=== PATIENT | male | born 1995 | race African-American/Black ===

== ENCOUNTER 2018-08-07 12:41 | Observation (INO) ==
--- NOTE | 2018-08-07 13:47 | Diag Imaging Result Doc PS360 ---
CHEST-2 VIEWS - 08/07/2018 INDICATION: cough COMPARISON: 04/28/2017 FINDINGS: Lung volumes are low. There is cardiomegaly and pulmonary vascular congestion. There is some mild central infiltrates bilaterally compatible with pulmonary edema. No pneumothorax or large pleural effusion. IMPRESSION: Cardiomegaly, pulmonary vascular congestion, pulmonary edema. Electronically signed by Keon Rosario 08/07/2018 1:44 PM
[2018-08-07 15:16] LABS: BE 1.2 mmoll (-3.0-3.0); BLOOD TYPE ARTERIAL; HCO3-(ACT) 25.8 mmoll (20.0-26.0); METHB 1.2 % (0.0-1.5); O2(CT) 20.3 mL/dL (15.0-23.0); PCO2(98.6) 41 mmHg (35-45); PO2(98.6) 83 mmHg (60-100); SAMPLE BLOOD; SAO2 97.6 % (95.0-100.0); THB 15.3 g/dL (11.5-17.4); pH(98.6) 7.41 (7.35-7.45)
[2018-08-07 15:18] LABS: ALLEN TEST YES; MODALITY CANNULA
[2018-08-07 15:54] LABS: BASO# 0.03 X1000 (0.0-0.2); BASO% 0.3 % (0.0-0.8); EOS# 0.07 X1000 (0.0-0.7); EOS% 0.7 % (0.0-10.0); HEMATOCRIT 43.2 % (42.0-52.0); HEMOGLOBIN 14.9 g/dL (14.0-18.0); IMM GRAN# 0.04 X1000 (0.0-0.04); IMM GRAN% 0.4 % (0.0-0.5); LYMPH# 1.93 X1000 (1.2-3.4); LYMPH% 19.4 % (20.5-51.1); MCH 31.4 PG (27-31); MCHC 34.5 g/dL (33-37); MCV 91.1 FL (81-99); MONO# 0.87 X1000 (0.11-0.59); MONO% 8.7 % (1.7-9.3); MPV 11.3 FL (7.4-10.4); NEUT# 7.01 X1000 (1.4-6.5); NEUT% 70.5 % (42.2-75.2); PLT 238 X1000 (130-400); RBC 4.74 XMIL (4.7-6.1); RDW 13.9 % (11.5-14.5); WBC 9.95 X1000 (4.8-10.8)
--- NOTE | 2018-08-07 16:20 | PROVIDER DOCUMENTATION ---
This chart was entered by Deepthi Ochoa Scribe, acting as scribe for Inder Omalley MD. HPI-Respiratory General - General Chief Complaint: General Adult Stated Complaint: DIFFICULT BREATHING Time Seen by Provider: 08/07/18 13:40 Source: family Allergies/Adverse Reactions: Patient Allergies Allergy/AdvReac Type Severity Reaction Status Date / Time carbamazepine [From Tegretol] Allergy RASH Verified 04/28/17 19:08 lamotrigine [From Lamictal] Allergy RASH Verified 04/28/17 19:08 topiramate [From Topamax] Allergy RASH Verified 04/28/17 19:08 Home Medications: Home Medication List Medication Instructions Recorded Confirmed Last Taken Type Albuterol Sulfate 2.5 mg IH PRN PRN 04/28/17 04/28/17 Unknown History Azithromycin [Zithromax Z-Jered] 250 mg PO DIRECTED #1 pkg 04/28/17 Unknown Rx Clobazam [Onfi] 50 mg PO DAILY 04/28/17 04/28/17 Unknown History D-Methorphan/P-Epd/Bpm [Bromfed Dm 5 ml PO Q4H PRN #120 ml 04/28/17 Unknown Rx Liquid] Lacosamide [Vimpat] 200 mg PO BID 04/28/17 04/28/17 Unknown History Levalbuterol Inhaler [Xopenex Hfa] 2 puff INH Q4-6H PRN PRN 04/28/17 04/28/17 Unknown History Levetiracetam 3,500 mg PO DAILY 04/28/17 04/28/17 Unknown History Mirtazapine 3.75 mg PO PRN PRN 04/28/17 04/28/17 Unknown History Omeprazole 40 mg PO QHS 04/28/17 04/28/17 Unknown History Polyethylene Glycol 3350 [Miralax] 17 gm PO PRN PRN 04/28/17 04/28/17 Unknown History Pyridoxine HCl [Vitamin B-6] 100 mg PO BID 04/28/17 04/28/17 Unknown History Rufinamide [Banzel] 400 mg PO BID 04/28/17 04/28/17 Unknown History - History of Present Illness-Resp Nature of Presenting Problem: 22 y/o male presents to ED with SOB and dyspnea onset 1 week ago. Mother of pt reports she talked to his pulomonolgist on the phone on 07/29 about his symptoms, and he put him on prednisone and cefdinir. Mother states his O2 sats have been dropping into the 80s. Pt is sleeping and nontoxic. Quality of Pain: reports: none Severity in ED: reports: mild, moderate Onset/Duration: reports: 1 week ago Timing: reports: still present Cough Quality/Degree: reports: no cough Episode Frequency: occasional episodes Current Respiratory Medication Therapy: Initiated see nurses note Modifying Factors: improves with: nothing Associated Symptoms: reports: shortness of breath, short of breath, other (dyspnea) Similar Symptoms Previously?: No Recently seen or treated by another doctor?: No Review of Systems - Adult - REVIEW OF SYSTEMS - ADULT Constitutional: denies: chills, fever Eyes: reports: no symptoms reported Ears, Nose, Mouth & Throat: reports: no symptoms reported Cardiovascular: denies: chest pain, palpitations Respiratory: reports: shortness of breath, other (dyspnea). denies: cough Gastrointestinal: denies: diarrhea, nausea, vomiting Genitourinary: reports: no symptoms reported Musculoskeletal: reports: no symptoms reported Integumentary: reports: no symptoms reported Neurological: denies: seizure, syncope Psychiatric: reports: no symptoms reported Endocrine: reports: no symptoms reported Hematologic/Lymphatic: reports: no symptoms reported Allergic/Immunologic: reports: no symptoms reported All Other Systems: Reviewed and Negative Past History - Adult - PAST MEDICAL HISTORY-ADULT Review of Records: reports: Old Records Reviewed, Nursing Assessment Review, Medications Reviewed Major Childhood Illnesses: reports: denies history Respiratory: reports: asthma, sleep apnea Neurological: reports: Seizures/Epilepsy, other (anoxic brain injury) - PRIOR SURGERIES/PROCEDURES Surgical/Procedure History: reports: other (trach, G tube, testicle, heart, chest tube) - IMMUNIZATION STATUS Childhood Immunizations: See Nurse Assessment Flu Vaccine: See Nurse Assessment - FAMILY HISTORY Family History: reviewed, not pertinent - SOCIAL HISTORY Smoking: non-smoker Substance Use: none/never Alcohol Use Frequency: never Living Situation: family Physical Exam-General - PHYSICAL EXAM-ADULT Initial Vital Signs Reviewed: Yes - CONSTITUTIONAL General Appearance: appears well, alert, no apparent distress, other (disabled from anoxic brain injury; minimally responsive) - EYES Eyes: PERRL/EOMI, pink conjunctivae - HEAD, EARS, NOSE, MOUTH & THROAT HENMT: normocephalic/atraumatic, moist mucous membranes, normal ENT inspection, TM obscurred by cerumen (bilateral), other (clear airway) - NECK Neck: non-tender - RESPIRATORY Respiratory: chest non-tender, lungs clear, decreased breath sounds - CARDIOVASCULAR Cardiovascular: normal peripheral pulses, regular rate, rhythm - GASTROINTESTINAL (ABDOMEN) Abdominal Exam: normal bowel sounds, non tender, soft - MUSCULOSKELETAL Back Exam: normal inspection, no CVA tenderness Extremity: non-tender - SKIN Integumentary: normal color, warm/dry - NEUROLOGIC Neurologic: grossly normal, other (disabled from anoxic brain injury; minimally responsive) - PSYCHIATRIC Psych/Mental Status: normal mood/affect, other (disabled from anoxic brain injury; minimally responsive) - HEART Score HEART Score: History: Slightly Suspicious HEART Score: Age: < or = 45 Years HEART Score: Risk Factors for Atherosclerotic Disease: 1 or 2 Risk Factors Progress - PLAN OF CARE/RESULTS Progress/Plan/Lab Results: Vital Signs - 8 hr 08/07/18 12:45 08/07/18 14:41 Temperature 98.6 F 98.8 F Pulse Rate 95 H 85 Respiratory Rate 20 18 Blood Pressure 134/75 126/87 O2 Sat by Pulse Oximetry 94 L 95 Laboratory Results - last 24 hr 08/07/18 08/07/18 15:00 15:50 WBC 9.95 RBC 4.74 Hgb 14.9 Hct 43.2 MCV 91.1 MCH 31.4 H MCHC 34.5 RDW Std Deviation 13.9 Plt Count 238 MPV 11.3 H Immature Gran % (Auto) 0.4 Neut % (Auto) 70.5 Lymph % (Auto) 19.4 L [place] % (Auto) 8.7 Eos % (Auto) 0.7 Baso % (Auto) 0.3 Immature Gran # (Auto) 0.04 Neut # (Auto) 7.01 H Lymph # (Auto) 1.93 [place] # (Auto) 0.87 H Eos # (Auto) 0.07 Baso # (Auto) 0.03 Specimen Type ARTERIAL Sample Site R RADIAL pH 7.41 pCO2 41 pO2 83 HCO3 25.8 Base Excess 1.2 Oxyhemoglobin 94.0 L ABG O2 Sat (Calculated) 20.3 ABG O2 Saturation 97.6 ABG Carboxyhemoglobin 2.50 ABG Methemoglobin 1.2 Jose Test YES A-a O2 Difference 37.0 Total Hemoglobin 15.3 Lactate 1.60 Liter Flow 1.0 Blood Gas Modality CANNULA FiO2 % 24.0 Orders Category Date Time Status CHEST-2 VIEWS [RAD] Stat Exams 08/07/18 12:53 Completed ABG [RESP] Routine Lab 08/07/18 15:00 Completed CBC WITH ELECTRONIC DIFF [HEME] Stat Lab 08/07/18 15:50 Completed COMPREHENSIVE METABOLIC PANEL [CHEM] Stat Lab 08/07/18 15:50 Received bnp [PRO B-NATRIURETIC PEPTIDE] Stat Lab 08/07/18 15:50 Received Transfer/Admit Order [TRANSFER] Routine Transfer 08/07/18 16:07 Ordered Result Diagrams: 08/07/18 15:50 - XRAY 1 XRAY Study: Chest Impression: Abnormal (FINDINGS: Lung volumes are low. There is cardiomegaly and pulmonary vascular congestion. There is some mild central infiltrates bilaterally compatible with pulmonary edema. No pneumothorax or large pleural effusion. IMPRESSION: Cardiomegaly, pulmonary vascular congestion, pulmonary edema. Electronically signed by Keon Rosario 08/07/2018 1:44 PM) - CONSULTS/PCP/HOSPITALIST Notification #1 *Consult/PCP/Hospitalist*: Dr. Santoro Time Discussed: 16:03 Reason/Comments: O2 sat; chest x-ray Consult Disposition: Admit Departure - Departure Date of Disposition Decision: 08/07/18 Time of Disposition Decision: 16:18 DIAGNOSIS: Hypoventilation associated with obesity Disposition: ADMITTED INPATIENT 09 Certified Medical Emergency: Emergent Condition: Stable Additional Freetext Instructions: ED Follow Up Instructions: You have been treated by a care provider in the Emergency Department. These instructions are being provided to you so you can have an understanding of how to care for yourself upon discharge. Upon discharge from the Emergency Department, you are responsible for making arrangements for follow-up care by a physician of your choice. Take all prescribed medications as directed. Return to the Emergency Department immediately for any new or worsening symptoms. You may call the Physician Referral phone number at [phone] to obtain a list of Physicians who are taking new patients. Referrals and Follow-Ups: Melony Bruce MD [Primary Care Provider] - - Critical Care Note This patient required my direct & personal management of CC.: No Attestation - Physician/ CHIVO Attestation Patient care was provided by Advanced Practice Provider:: No The physician spent face to face time with patient:: Yes Advanced Practice Provider documentation review:: Supervising physician onsite and consulted in the evaluation and care of this patient. The physician did have a face to face encounter with the patient. This chart was documented by the indicated scribe, (Deepthi Ochoa, Armida) and accurately reflects the services I performed and decisions made by me, Inder Omalley MD, as attested by the provider's signature.
[2018-08-07] MEDS ORDERED: TYLENOL PO PRN (16:36)
[2018-08-07] MEDS ORDERED: SALINE LOCK IV FLUID XX ONE (16:36)
[2018-08-07 16:37] LABS: AGAP 14; ALBUMIN 4.6 g/dL (3.5-5.0); ALKALINE PHOSPHATASE 113 U/L (32-122); BUN 8 mg/dL (8-22); CALCIUM 9.1 mg/dL (8.8-10.2); CHLORIDE 101 mmol/L (98-107); COSMO 279; CREATININE 0.6 mg/dL (0.7-1.2); ESTIMATED GFR > 60; GLUCOSE 89 mg/dL (70-104); GOT 24 U/L (10-34); GPT 32 U/L (10-44); POTASSIUM 3.9 mmol/L (3.5-5.1); SODIUM 141 mmol/L (136-145); TCO2 26 mmol/L (25-35); TOTAL PROTEIN 8.3 g/dL (6.3-8.3)
--- NOTE | 2018-08-07 17:21 | HISTORY AND PHYSICAL ---
PRIMARY CARE PHYSICIAN: Dr. Bruce. ADVERTISING REPRESENTATIVE: Dr. Hester. CHIEF COMPLAINT: Shortness of breath for 1 week that progressively worsened. HISTORY OF PRESENTING ILLNESS: This is a 22-year-old male who presents to [facility] ER with his mom who states that he has had shortness of breath for about a week, talked to his tax staff accountant on the phone on 07/29/2018 about the symptoms he was having and the tax staff accountant put him on a prednisone taper and cefdinir. Mom states that the O2 saturations on room air have been dropping down to the 80s if the patient tries to move or when he gets up. It is noted that he has had a history of an anoxic brain injury with seizures, asthma and sleep apnea in the past. He has had a tracheostomy, G-tube, chest tube, heart surgery. His workup showed on arrival he had a O2 saturation on room air of 94%. His chest x-ray showed cardiomegaly, pulmonary vascular congestion and pulmonary edema. His lungs have decreased breath sounds bilaterally. He is minimally responsive to verbal stimuli so we are admitting him for further evaluation and treatment. PAST MEDICAL HISTORY: Of anoxic brain injury, seizures, asthma and sleep apnea. PAST SURGICAL HISTORY: Of a tracheostomy, G-tube placement, testicle surgery, chest tube placement and heart surgery. FAMILY HISTORY: Reviewed and noncontributory. SOCIAL HISTORY: Currently lives with family. Denies any tobacco, alcohol or illicit drug use. ALLERGIES: To carbamazepine, lamotrigine and topiramate. HOME MEDICATIONS: A current list will need to be obtained, reviewed and then will restart as appropriate. I will place an order for nursing to update and confirm home medications. LABORATORY DATA: Showed a white blood cell count of 9.95, hemoglobin 14.9, hematocrit 43.2, platelets 238,000. ABG showed a pH of 7.41, pCO2 of 41, PO2 83, bicarb 25.8 this was on 1 L via nasal cannula. Sodium 141, potassium 3.9, chloride 101, CO2 26, BUN of 8, creatinine 0.6, glucose 89. Chest x-ray showed cardiomegaly, pulmonary vascular congestion and pulmonary edema. REVIEW OF SYSTEMS: Unable to obtain from patient but mom states that he has had shortness of breath for 1 week that has progressively worsened. PHYSICAL EXAMINATION: On arrival he had a temperature of 98.6 degrees, pulse 95, respirations 20, blood pressure 134/75, saturating 94% on room air. GENERAL: This is a 22-year-old morbidly obese male who is sitting up in his wheelchair on arrival to the room, minimally responsive. Mom at bedside to give history. HEENT: Normocephalic, atraumatic. Normal ENT inspection. Oropharynx and nares are clear. Pupils are equal, round, reactive to light and accommodation. Extraocular movements are intact. NECK: Normal inspection, normal range of motion. LUNGS: With decreased breath sounds bilaterally. Equal lung expansion, chest wall movement noted. HEART: Regular rate and rhythm. No murmurs, rubs, or gallops. ABDOMEN: Soft, nontender, nondistended. Bowel sounds are present x4 quadrants. MUSCULOSKELETAL: Unable to assess strength at this time. NEUROLOGIC: He has had an anoxic brain injury in the past and is minimally responsive and unable to complete a full neurological examination. He does not ambulate and is transferred with max assist from bed to wheelchair per mom. ASSESSMENT: 1. Hypoventilation associated with obesity. 2. Pulmonary edema per chest x-ray. 3. An anoxic brain injury history of. PLAN: He is being admitted to the medical unit. Placed on O2 per protocol, incentive spirometry as he can participate, Lasix 40 mg IV q.12, Tylenol 650 mg p.o. q.6 p.r.n., have nursing to update and confirm his home medications. We will do daily weights per our bed scales and further orders after being seen by attending and I will also place him on DuoNeb q.4 hours. Dictated by JOMAR Freeman for Vanessa Santoro MD Patient was seen by me face to face, and I agree with the assessment and plan of nurse practitioner Ms. Isidra Haney. cc: JOMAR Freeman MD Dr. Jindal MTDD
[2018-08-07] MEDS: DUONEB (A & A) INH SCH ×2 (20:02→22:49)
[2018-08-07] MEDS ORDERED: REMERON PO PRN (20:59)
[2018-08-07] MEDS ORDERED: XOPENEX HFA INH PRN (20:59)
[2018-08-07] MEDS ORDERED: MIRALAX PO PRN (20:59)
[2018-08-07] MEDS ORDERED: KEPPRA PO SCH (21:00)
[2018-08-07] MEDS ORDERED: RUFINAMIDE 400 MG PO SCH (21:00)
[2018-08-07] MEDS: LASIX IV SCH (21:44)
[2018-08-07] MEDS: PYRIDIUM PO SCH (21:53)
[2018-08-07] MEDS: VIMPAT PO SCH (21:53)
[2018-08-07] MEDS: CLOBAZAM PO SCH ×2 (22:46→22:47)
[2018-08-07] MEDS ORDERED: RUFINAMIDE PO SCH (23:20)
[2018-08-08] MEDS: DUONEB (A & A) INH SCH ×5 (03:38→19:25)
[2018-08-08] MEDS: LASIX IV SCH ×2 (05:20→16:30)
[2018-08-08 06:19] LABS: BE 2.9 mmoll (-3.0-3.0); BLOOD TYPE ARTERIAL; METHB 1.4 % (0.0-1.5); O2(CT) 20.3 mL/dL (15.0-23.0); O2HB 91.6 % (95.0-99.0); PCO2(98.6) 43 mmHg (35-45); PO2(98.6) 66 mmHg (60-100); SAMPLE BLOOD; SAO2 95.1 % (95.0-100.0); THB 15.8 g/dL (11.5-17.4); pH(98.6) 7.42 (7.35-7.45)
[2018-08-08 06:23] LABS: MODALITY ROOM AIR
[2018-08-08 06:40] LABS: ALLEN TEST YES
[2018-08-08 06:49] LABS: BASO# 0.03 X1000 (0.0-0.2); BASO% 0.3 % (0.0-0.8); EOS# 0.34 X1000 (0.0-0.7); EOS% 3.8 % (0.0-10.0); HEMATOCRIT 44.2 % (42.0-52.0); HEMOGLOBIN 15.1 g/dL (14.0-18.0); IMM GRAN# 0.08 X1000 (0.0-0.04); IMM GRAN% 0.9 % (0.0-0.5); LYMPH# 2.88 X1000 (1.2-3.4); LYMPH% 32.4 % (20.5-51.1); MCH 31.1 PG (27-31); MCHC 34.2 g/dL (33-37); MCV 91.1 FL (81-99); MONO# 0.63 X1000 (0.11-0.59); MONO% 7.1 % (1.7-9.3); MPV 12.3 FL (7.4-10.4); NEUT# 4.92 X1000 (1.4-6.5); NEUT% 55.5 % (42.2-75.2); PLT 155 X1000 (130-400); RBC 4.85 XMIL (4.7-6.1); WBC 8.88 X1000 (4.8-10.8)
[2018-08-08 07:03] LABS: AGAP 16; BUN 10 mg/dL (8-22); CALCIUM 9.3 mg/dL (8.8-10.2); CHLORIDE 97 mmol/L (98-107); COSMO 272; CREATININE 0.5 mg/dL (0.7-1.2); ESTIMATED GFR > 60; GLUCOSE 83 mg/dL (70-104); POTASSIUM 3.7 mmol/L (3.5-5.1); SODIUM 137 mmol/L (136-145); TCO2 24 mmol/L (25-35)
[2018-08-08] MEDS ORDERED: XOPENEX NEB INH PRN (07:21)
--- NOTE | 2018-08-08 08:11 | PROGRESS NOTE ---
DATE: 08/08/2018 SUBJECTIVE: The patient has not been having any issues since last night and had a restful night of sleep. OBJECTIVE: Vital Signs: Temperature 98 degrees, pulse 78 per minute, respiratory rate 22 per minute, blood pressure 140/74, pulse oximetry 93% on BiPAP without any oxygen. Cardiovascular System: First and second heart sounds are audible without any murmurs or gallops. Respiratory System: Bilateral lung air entry is moderately decreased but there are no rales or rhonchi present on auscultation. Gastrointestinal System: The patient is morbidly obese. Abdomen is soft and nontender. Normal bowel sounds are present. Diagnostic Data: CBC and basic metabolic panel are nondiagnostic. Arterial blood gases done on room air showed a pH of 7.42, pCO2 of 43, and PO2 66. D-dimer was found to be abnormally elevated at 1.78. IMPRESSION: 1. Dyspnea with periodic hypoventilation causing him to have hypoxemia that is associated with morbid obesity. 2. Elevated D-dimer. PLAN: The patient has been admitted to the medical-surgical floor last night and has been getting oxygen as per protocol on an as-needed basis. He is also having incentive spirometry and has been using BiPAP. He is receiving bronchodilators via nebulization and I am going to obtain a stat CT angiogram of the pulmonary arteries to rule out pulmonary thromboembolism. He did have some fluid overload for which he has been receiving furosemide 40 mg IV q.12 hours. That might have helped him as well. I believe if his CT angiogram of the pulmonary arteries is negative for pulmonary thromboembolism, he can be discharged home later today. cc: Vanessa Santoro MD
[2018-08-08] MEDS: PULMICORT INH SCH ×2 (08:31→19:25)
[2018-08-08] MEDS ORDERED: PRILOSEC PO SCH (09:00)
[2018-08-08] MEDS ORDERED: KEPPRA PO SCH (09:00)
[2018-08-08] MEDS ORDERED: CLOBAZAM PO SCH (09:00)
[2018-08-08] MEDS ORDERED: PATIENT'S OWN MED PO SCH ×3 (09:15→21:00)
[2018-08-08] MEDS: VIMPAT PO SCH (09:43)
[2018-08-08] MEDS: PYRIDIUM PO SCH (09:44)
[2018-08-08] MEDS ORDERED: VENTOLIN HFA INH PRN (10:00)
--- NOTE | 2018-08-08 12:40 | Diag Imaging Result Doc PS360 ---
CT ANGIOGRM PULMONARY ARTERIES - 08/08/2018 INDICATION: Dyspnea; Elevated D-Dimer TECHNIQUE: Axial CT images were obtained after administering intravenous contrast. Coronal MIP images were generated. COMPARISON: Chest x-ray from yesterday FINDINGS: There is no visible pulmonary embolism. There is cardiomegaly. Great vessels are normal. No adenopathy. Upper abdominal images are grossly normal. There is central interstitial infiltrate diffusely compatible with pulmonary edema. There are some linear atelectasis in the lung bases. Bones are intact. IMPRESSION: No pulmonary embolism. Cardiomegaly and interstitial pulmonary edema. This exam was performed using automated exposure control, adjustment of mA or kV according to patient size, and/or use of iterative reconstruction technique Electronically signed by Keon Rosario 08/08/2018 12:37 PM
[2018-08-08 19:55] VITALS: BP 124/69
--- NOTE | 2018-08-08 21:02 | DISCHARGE SUMMARY ---
ADMISSION DATE: 08/07/2018 DISCHARGE DATE: 08/08/2018 DISCHARGE DIAGNOSES: 1. Hypoventilation secondary to obesity. 2. Fluid overload causing pulmonary edema and possible hypoxemia. 3. History of anoxic brain injury. HOSPITAL COURSE: This is a 22-year-old gentleman who was brought in to the [facility] emergency department with complaint of having shortness of breath of 1 week's duration. He was brought in since his shortness of breath was not responding to the medications prescribed by his non destructive testing inspector on 07/29/2018 when he was prescribed Omnicef and prednisone for his symptoms. The patient's mother has been the primary caregiver, and she stated that his pulse ox was dropping into the 80s because of which she had to bring him to the emergency room. Here at the emergency room, his oxygen saturation on room air was documented at 94% and not even a single time we witnessed any hypoxemia. His chest x-ray did show pulmonary vascular congestion, because of which he received IV furosemide. His condition has been stable throughout this hospital stay, and we did obtain a D-dimer that was found to be elevated at 1.78, because of which we obtained pulmonary CT angiogram that ruled out any pulmonary thromboembolism. There was some cardiomegaly and interstitial pulmonary edema, however. The patient has been advised to take a low-salt diet. His blood gases this morning on room air showed pH of 7.42, pCO2 of 43, and PO2 of 66. Since then, his condition has been stable. His mother wanted him to take him home and, therefore, we agreed for him to be discharged today. DISCHARGE MEDICATIONS: 1. Xopenex inhaler 2 puffs q. 4 to 6 hours as needed for wheezing. 2. Rufinamide 400 mg orally twice daily. 3. Vitamin B6, 100 mg orally twice daily. 4. MiraLAX 17 g orally once daily as needed for constipation. 5. Omeprazole 40 mg orally once daily in the morning. 6. Mirtazapine 7.5 mg orally once daily at bedtime as needed as directed. 7. Keppra 1500 mg in the morning and 2000 mg in the evening daily. 8. Vimpat 200 mg orally twice daily. 9. Clobazam 20 mg orally once daily in the morning and 30 mg orally once daily at bedtime. 10. Albuterol sulfate nebulization treatment every 6 hours as needed for wheezing. FOLLOWUP: He will follow up with his PCP, Dr. Bruce, in approximately 1 week. CONDITION: Stable. DISPOSITION: Home. cc: MD Melony Bonner MD
== END 2018-08-08 21:00 | disposition home or self-care (01) ==
LOC: P.ED 12:41 → P.MEDSURG 12:41
PROVIDERS: ATTEND Internal Medicine
CPT/HCPCS: 71020; 71046; 71275; 80048; 80053; 82805; 83880; 85025; 85379; 94640; 94761; 94799; A9270; J1940; Q9967